=== PATIENT | female | born 1965 | race African-American/Black ===

== ENCOUNTER 2024-05-14 04:14 | Day surgery (SDC) | payer OTHER ==
[2024-05-09 11:17] VITALS: BMI 33.6
[2024-05-14] MEDS ORDERED: IBUPROFEN 400 MG TABLET (FP) PO PRN (09:44)
[2024-05-14] MEDS ORDERED: oxyCODONE HCL 5 MG TABLET PO PRN (09:44)
[2024-05-14] MEDS ORDERED: ACETAMINOPHEN 325 MG TABLET (FP) PO PRN (09:44)
[2024-05-14] MEDS ORDERED: PROPOFOL 20 ML ONE ×2 (12:45→13:41)
[2024-05-14] MEDS ORDERED: MIDAZOLAM HCL 2 MG/2 ML SINGLE DOSE VIAL ONE (12:45)
[2024-05-14] MEDS ORDERED: KETOROLAC TROMETHAMINE 30 MG/1 ML VIAL ONE (14:03)
[2024-05-14 16:26] VITALS: RESP 20
[2024-05-14 18:52] VITALS: BP 101/62; PULSE 72; TEMP 98
== END 2024-05-14 18:37 | disposition home or self-care (01) ==
LOC: JASU-SURG 04:14
PROVIDERS: ATTEND Obstetrics & Gynecology
PROC: 0UB98ZZ Excision of Uterus, Via Natural or Artificial Opening Endoscopic (ICD-10-PCS; principal; 2024-05-14 12:15)
PROC: 0UDB8ZZ Extraction of Endometrium, Via Natural or Artificial Opening Endoscopic (ICD-10-PCS; 2024-05-14 12:15)
PROC: 0UBC8ZZ Excision of Cervix, Via Natural or Artificial Opening Endoscopic (ICD-10-PCS; 2024-05-14 12:15)
DX: N84.1 Polyp of cervix uteri (principal); D25.0 Submucous leiomyoma of uterus; A63.0 Anogenital (venereal) warts
CPT/HCPCS: 81025; 88305-TC; 88341-TC; 88342-TC; 94760